=== PATIENT | male | born 1980 | race African-American/Black ===

== ENCOUNTER 2018-04-10 15:10 | Emergency (ER) | payer OTHER ==
[~2018-04-10] VITALS: Ht 182.9 cm; Wt 86.4 kg
[2018-04-10] MEDS ORDERED: CYCLOBENZAPRINE HCL 10 MG TABLET PO ONE (17:00)
[2018-04-10] MEDS ORDERED: KETOROLAC TROMETHAMINE 30 MG/ML VIAL IM ONE (17:00)
[2018-04-10 18:10] VITALS: BP 125/74
== END 2018-04-10 18:39 | disposition home or self-care (01) ==
LOC: EMS 15:11
DX: S23.9XXA Sprain of unspecified parts of thorax, initial encounter (principal); X58.XXXA Exposure to other specified factors, initial encounter; Y93.89 Activity, other specified; Y92.89 Other specified places as the place of occurrence of the external cause; Y99.8 Other external cause status
CPT/HCPCS: 72080; 96372; 99284; J1885